=== PATIENT | female | born 1980 | race Caucasian/White ===

== ENCOUNTER 2022-08-14 08:21 | Inpatient (IN) | payer MEDICARE ==
[~2022-08-14] VITALS: Ht 175.3 cm; Wt 111.9 kg
--- OUTSIDE RECORDS SUMMARY | 2022-08-14 08:24 | XMS ---
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 Care Guidelines exist for the following facilities: [facility] ( 01/28/2020 ) [place] VISIT COUNT (12 MO.) 1 [facility] (formerly [facility]3][place] [facility] TOTAL 1 NOTE: Visits indicate total known visits. ED/UCC VISIT TRACKING (12 MO.) 08/14/2022 08:22 [facility] [place] TYPE: Emergency COMPLAINT: - HEADACHE INPATIENT VISIT TRACKING (12 MO.) No inpatient visits to display in this time frame [email or web address]
[2022-08-14] MEDS ORDERED: DEXTROAMPHETAMI10 M1 PO (09:08)
[2022-08-14] MEDS ORDERED: SULFAMETHOXAZO1 EAC1 PO (09:08)
[2022-08-14] MEDS ORDERED: BUPROPION XL300 MG PO (09:08)
[2022-08-14] MEDS ORDERED: AMPHETAMINE SAL15 MG PO (09:08)
[2022-08-14] MEDS ORDERED: LAMOTRIGINE150 MG PO (09:09)
[2022-08-14] MEDS ORDERED: VITAMIN D21250 MCG PO (09:09)
[2022-08-14] MEDS ORDERED: ARIPIPRAZOLE30 MG PO (09:09)
[2022-08-14] MEDS ORDERED: ESCITALOPRAM OX10 MG PO (09:11)
--- NOTE | 2022-08-14 13:05 | NUR ---
REPORT RECEIVED FROM PILO JONES. AWAITING PTS ARRIVAL TO MED/SURG.
--- NOTE | 2022-08-14 14:01 | NUR ---
PT ARRIVED FROM ER. BHAVNA RN AT BEDSIDE CHECKING PT IN. PT RESTING IN BED. DIAPHORETIC. TEMPERATURE CONTINUES TO ELEVATE. DR. CARVER UPDATED AND STATES TO GIVE ADDITIONAL DOSE OF TYELNOL NOW, SEE MAR FOR MEDICATION GIVEN. PT REPORTS 7/10 HEADACHE THAT "SPIKES, IT FEELS LIKE LIGHTENING." PT ALERT AND OREINTED TO ALL. DENIES NUMBNESS AND TINGLING. PT REPORTS "MUSCLE CRAMPS" IN LEGS OFF AND ON. LUNG SOUND CLEAR. HEART TONES REGULAR, MILD TACHYCARDIA NOTED. GENERALIZED EDEMA NOTED TO RIGHT SIDE OF FACE. PT REPORTS SPKIES OF PAIN IN THIS AREA. BOWEL TONES ACTIVE, ABDOMEN SOFT AND NON TENDER. BILATERAL FLANK PAIN NOTED, WORSE WITH PALPATION. PT REPORTS OCCATIONAL PAIN WITH URINATION. ~10CM SCRATCH NOTED TO RIGHT HIP, MILD ERYTHEMA NOTED AROUND SCRATCH. PT REPORTS THIS SCRATCH WAS FROM HER CAT BUT OCCURED "AFTER I GOT SICK." PT REQEUSTS LUNCH TO EAT. ORDER PLACED AND FOOD DELIVERED. NO ADDITIONAL REQUESTS OR COMPLAINTS AT THIS TIME. PT DEMONSRATES USE OF CALL LIGHT. CALL LIGHT WITHIN REACH. BED RAILS UP.
--- NOTE | 2022-08-14 15:18 | NUR ---
THIS RN TO ROOM TO CHECK ON PT AND REASSESS TEMPERATURE. TEMPERATURE NOW 102.4, DR CARVER UPDATED. STATES TO PROVIDE ICE PACKS TO PT TO HELP HER COOL DOWN. 3 ICE PACKS PROVIDED, PLACED BEHIND PTS NECK. 1 UNDER ARM PIT ADN OEN BETWEEN LEGS. PT STATES ICE "FEELS GOOD." PT REPORTS 6/10 PAIN IN RIGHT FACE, SEE MAR FOR MEDICATION GIVEN. NO ADDITIONAL NEEDS AT THIS TIME. ICE WATER REFILLED. CALL LIGHT WITHIN REACH. BED RAILS UP.
[2022-08-14] MEDS ORDERED: LEVOTHYROXINE25 MCG PO (15:23)
[2022-08-14] MEDS ORDERED: VALACYCLOVIR1000 MG PO (15:23)
--- NOTE | 2022-08-14 16:20 | NUR ---
MEDICATION DUE. THIS RN TO ROOM. TEMPERATURE REASSESED, NOW 99.3. PT REPORTS PAIN HAS MUCH IMPROVED, NOW 2/10 IN RIGHT FACE/HEADACHE. VANCO RATE AND TIME TO INFUSE APPEARS UNUSUAL. PHARAMCY CALLED AND STATES RATE IS INCORRECT. NEW LABLE PRINTED. MEDICAITON STARTED (SEE MAR). PTS SIGNIFICANT OTHER ARRIVED TO BEDSIDE. UPDATED BY PT. NO ADDITIONAL REQESTS OR COMPLAINTS. CALL LIGHT WITHIN REACH. BED RAILS UP.
--- NOTE | 2022-08-14 17:49 | NUR ---
AFTERNOON ASSESSMENT DUE. THIS RN TO ROOM. PT EATING DINNER AND VISITING WITH FRIENDS. PT REPORTS PAIN IS "PRETTY MUCH GONE." RATING PAIN AT 1/10 IN RIGHT SIDE OF FACT. TEMPERATURE NOW 99.0. PT REPORTS ICE PACKS FEEL "REALLY GOOD." TACHYCARDIA NOW RESOLVED. BOWEL TONES ACTIVE. ABDOMEN SOFT AND NON TENDER. PT VOIDING QUANTITY SUFFICENT. SWELLING TO FACE UNCHANGED BUT PT STATES "IT FEELS BETTER." EXTENSIVE EDUCATION DONE WITH PT REGARDING MEDICATIONS AND PLAN OF CARE. ICE WATER REFILLED. ICE PACKS REFILLED. NO ADDITIONAL REQUESTS OR COMPLAINTS. CALL LIGHT WITHIN REACH. BED RAILS UP. FRIENDS AT BEDSIDE.
--- NOTE | 2022-08-14 18:14 | NUR ---
PT ADMITED THIS SHIFT FOR UTI AND SEPSIS. PT UP WITH STAND BY ASSISST IN ROOM. PT TOELRATING REGULAR DIET WITH GOOD APPITITE. PT FEBRIAL FOR MOST OF SHIFT, MULTIPLE MEDICATIONS GIVEN AND ICE PACKS APPLIED. FEVER BROKE THIS EVENING. IV ABX GIVEN. SWELLING TO RIGHT FACE NOTED WITH 6-7/10 PAIN, PAIN MEDICATIONS GIVEN WITH GOOD RESULTS. FRIENDS AT BEDSIDE. PT VOIDING QUANTITY SUFFICIENT. PT USES CALL LIGHT AND MAKES NEEDS KNOWN.
--- NOTE | 2022-08-14 18:36 | NUR ---
THIS RN TO ROOM TO CHECK ON PT FINISHED WITH DINNER ATE ~10% OF DINNER BUT PREVIOSULY ATE 100% OF SNACK (WILLIAM AND ANNALISA). PT REPORTS PAIN IN RIGHT FACE REMAINS AT /10, PT DENIES NEED FOR ADDITIONAL PAIN MEDICATION. PT REMAINS AFBRIAL AT THIS TIME. PT DENIES ADDITIONAL REQUESTS OR COMPLAINTS. ORAL CARE PERFOREMED PER PT. CALL LIGHT WITHIN REACH. FRIENDS AT BEDSIDE.
--- NOTE | 2022-08-14 20:01 | NUR ---
IN TO PROVIDE PT A WARM BLANKET, EMPTIED URINE HAT
--- NOTE | 2022-08-14 21:09 | NUR ---
PATIENT VERBALIZED CONCERN THAT SHE WAS NOT TAKING HER VALTREX THAT SHE NORMALLY TAKES AT NIGHT. TELEPHONE ORDER DR. CARVER. NEW ORDER FOR VALTREX PO 1000 MG AT HS. UPDATED PATIENT ON POC.
--- NOTE | 2022-08-15 02:10 | NUR ---
PATIENT CALLED, INTO ROOM PATIENT APPEARS SHORT BREATH. PATIENT STATES " I FELL LIKE I CAN'T TAKE A DEEP BREATH" RESPIRATIONS APPEARS SHALLOW RR 28. PATIENT UP TO BSC. VSS COLLECTED. OXYGEN SATURATION 96% RA. LUNG SOUND CLEAR IN UPPER BASES BILATERALLY, WET CRACKLES IN THE BASES. NOTIFIED , WHO VERBALIZED TO TURN OFF FLUIDS AND RECHECK VITAL SIGNS IN AN HOUR. UPDATED PATIENT ON POC.
--- NOTE | 2022-08-15 04:27 | NUR ---
PATIENT UP THROUGHOUT NIGHT WITH COMPLAINTS OF PAIN TO FACE, ADMINISTERED PAIN MEDICATION WHEN AVAILABLE, PLUS AND ONE ADDITIONAL DOSE OF FENTANYL IV AND DOSE OF PO MOTRIN. PATIENT BECAME SOB AT 0200, LUNG SOUND AUSULTATED WET CRACKLES IN LOWER BASES. NEW ORDERS TO TURN OFF VITAL SIGNS. CRACKLES TO LOWER BASES DID NOT APPEAR TO WORSEN UPON REASSESMENT AND OXYGEN SATURATION HAS MAINTAINED 96% ON ROOM AIR. PATIENT APPEARS TO BE TAKING SHALLOW BREATHS.
--- NOTE | 2022-08-15 06:55 | NUR ---
PATIENT RESTING ON SIDE, APPEARS TO BE RESTING EYES. APPEARS TO BE NO NEEDS AT THIS TIME.
--- NOTE | 2022-08-15 07:21 | NUR ---
REPORT RECEIVED FROM PILO JONES. PT RESTING ON LEFT SIDE WITH EYES CLOSED, RESPIRATIONS EVEN AND UNLABORED. BED RAILS UP. CALL LIGHT WITHIN REACH. PT ALLOWED TO REST.
--- NOTE | 2022-08-15 08:55 | NUR ---
medications reconciled using pharmacy records and patient interview
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
--- NOTE | 2022-08-15 09:49 | NUR ---
PT IS LAYING IN BED AFTER BREAKFAST, VITALS AN D I/O HAVE BEEN DOCUMENTEED. PROVIDED FRESH ICE WATER TO PT. PT HAS NO FIRTHER NEEDS AT THIS TIME. CALL LIGHT IS WITHIN REACH.
--- NOTE | 2022-08-15 09:50 | NUR ---
THIS RN TO ROOM TO CHECK ON PT. PT REPORTS PAIN IS NOW 3/10 AND DENIES NEED FOR ADDITIONAL PAIN MEDICATION. RIGHT FORARM IV SITE INFUSION COMPLETE, IV FLUSHED AND SALINE LOCKED. DR CARVER TO BEDSIDE TO ROUND WITH PT. THIS RN LEAVES ROOM TO ALLOW PT TO HAVE CONVERSATION ABOUT CONCERNS WITH MD. PT DENIES ADDITONAL NEEDS AT THIS TIME. CALL LIGHT WITHIN REACH. BED RAILS UP.
--- NOTE | 2022-08-15 10:39 | NUR ---
THIS RN TO ROOM TO CHECK ON PT. PT UPDATED ON PLAN OF CARE AND LAB SAMPLES. PT VERBALIZES UNDERSTANDING. DIRTY CATCH URINE COLLECTED ANS SENT TO LAB, PER MD ORDER. PT REPORTS 5/10 PAIN IN RIGHT FACE. SEE MAR FOR PAIN MEDICATION GIVEN. AWAITING SWAB TO ARRIVE FROM LAB TO COLLECT ORAL SAMPLE. PT VERBALIZES UNDERSTANDING OF PLAN OF CARE AND STATES HER QEUSTIONS HAVE BEEN ANSWERED. PT REPORTS OCCATIONAL DIFFICULTY SWALLOWING STATING "ITS LIKE MY THROAT IS DRY." PT DENIES ADDITIONAL REQUESTS OR COMPLAINTS. PT BACK TO BED. CALL LIGHT WITHIN REACH. BED RAILS UP.
--- NOTE | 2022-08-15 11:39 | NUR ---
THIS RN TO ROOM TO CHECK ON PT. PT VISITING WITH SIGNIFICANT OTHER. PT REPORTS PAIN HAS IMPROVED, NOW AT 3/10. IV PUMP ALARMING, INFUSION AND FLUSH COMPLETE. LEFT FOR ARM IV SITE FLUSHED AND SALINE LOCKED, ALCOHOL CAP APPLIED. PT CONTINUES VISITING WITH HER FRIENDS. NO ADIDITONAL REQUESTS OR COMPLAINTS. CALL LIGHT WITHIN REACH. BED RAILS UP.
--- NOTE | 2022-08-15 12:22 | NUR ---
THIS RN TO ROOM TO CHECK ON PT. PT DECLINES LUNCH STATING HER FRIENDS ARE BRINGING HER FOOD. PT REPORTS PAIN IS WELL CONTROLLED AND DENIES ADDITIONAL REQUESTS OR COMPLAINTS. CALL LIGHT WITHIN REACH. BED RAILS UP.
--- NOTE | 2022-08-15 12:43 | NUR ---
PT TO AND FROM CT SCAN. PT REPORTS SCAN WENT WELL WITH NO ISSUES. THIS RN TO ROOM WITH DR TIWARI. EXAM PERFORMED AND ORAL AND VAGINAL SWAB COLLECTED BY DR. TIWARI. PT REPORTS TO DR. TIWARI THAT SHE HAS HAD SOME SPOTTING. PT TOLERATED EXAM WELL. PT UPDATED ON PLAN OF CARE AND STATES HER QUESTIONS HAVE BEEN ASNWERED. PT DENIES ADDITIONAL REQUESTS OR COMPLAINTS. CALL LIGHT WITHIN REACH.
--- NOTE | 2022-08-15 13:09 | NUR ---
PT CALL LIGHT ON. PT REQUESTS PAIN MEDICATION FOR 6/10 PAIN IN RIGHT CHEEK/HEAD. PTS FRIEND ARRIVED TO BEDSIDE WITH FOOD FOR PT. PT EATING AND VISITING WITH FRIEND.NO ADDITIONAL NEEDS AT THIS TIME. CALL LIGHT WITHIN REACH. BED RAILS UP.
--- NOTE | 2022-08-15 13:24 | NUR ---
MESSAGE SENT TO REGARDING POSSIBLE PROBIOTIC RELATED TO MULTIPLE ABX.
--- NOTE | 2022-08-15 13:47 | NUR ---
ABX DUE. PT CONTINUES TO REPORT 6/10 PAIN IN RIGHT FACE AND JAW. ICE PACK PROVIDED. ABX GIVEN. PT REPORTS OCCATIONAL FEELINGS OF SHORTNESS OF BREATH THAT "MIGHT BE ANXIETY." LUNG SOUNDS REMAIN CLEAR. PT FINISHED WITH LUNCH THAT WAS DELIVERED BY FRIENDS. PT DEMONSRATES USE OF I.S. REACHIGN 2000ML X5. OXYGEN SATURATIONS REMAIN 98-100% ON ROOM AIR. NO ADDITIONAL NEEDS AT THIS TIME. CALL LIGHT WIHTIN REACH. BED RAILS UP.
--- NOTE | 2022-08-15 14:14 | NUR ---
PT IS LAYING IN BED. VITALS AND I/O HAVE BEEN DOCUMENTED. FRESH ICE WATER WAS PROVIDED. PT HAS NO OTHER NEEDS AT THIS TIME, CALL LIGHT IS WITHIN REACH.
--- NOTE | 2022-08-15 14:40 | NUR ---
AFTERNOON ASSESSMENT DUE. IV PUMP ALARMING, INFUSTION AND FLUSH COMPLETE. IV SITE APEPARS MILDLY SWOLLEN, PAINFUL WITH FLUSH. IV TO LEFT FORARM DC'D PER PROTOCOL. GAUZE AND COBAN APPLIED. PT UP TO RESTROOM INDEPENDANTLY. PT REPORTS ONGOING 6/10 PAIN IN RIGHT FACE/HEAD THAT SPKIES UP TO 8/10 AND SHAKING CHILLS. PT SEEN TO HAVE UNCONTROLLABLE CHILLS. TEMPERATURE 99.6 AND RISING. TYELNOL GIVEN (SEE MAR). PT REMAINS ALERT AND OREINTED ALTHOUGH FATIGUED. LUNG SOUNDS REMAIN CLEAR. I.S. USE DEMONSTRATED WITH PT REACHING 2000ML X5. HEART TONES REGULAR WITH MILD TACHYCARDIA NOTED, HR 90'S. PT DENIES ANY ADDITIONAL MUSCLE CRAMPS, REMAINS STEADY ON FEET. BILATERAL FLANK PAIN AND PELVIC PAIN CONTINUE. ABDOMEN SOFT AND NON TENDER. BOWEL TONES ACTIVE. PT REQUESTS TO REST, NO ADDITIONAL REQEUSTS OR COMPLAINTS. CALL LIGHT WITHIN REACH. BED RAILSUP.
--- NOTE | 2022-08-15 15:44 | NUR ---
THIS RN TO ROOM TO CHECK ON PT. PT RESTING IN BED, REPORTS SHE IS FEELING "A LITTLE BETTER." PT REPORTS FACIAL PAIN IS IMPROVING NOW AT 4/10 AND SHE IS NO LONGER HAVING SHAKING CHILLS. TEMPERATURE NOW 100.4 (ORALLY). FRIEND AT BEDSIDE VISITING WITH PT. PT DENIES ADDITIONAL REQUESTS OR COMPLAINTS. ICE WATER REFILLED. CALL LIGHT WITHIN REACH. BED RAILS UP.
--- NOTE | 2022-08-15 15:58 | NUR ---
PT HERE FOR UTI WITH POSSIBLE SEPSIS. PT UP WITH STAND BY ASSIST IN ROOM AND TO RESTROOM THIS SHIFT, PT STEADY ON FEET. PT HAS MODERATE APPITITE FOR REGULAR DIET THIS SHIFT, FOOD BROUGHT FROM HOME. PT REPORTS 3-6/10 PAIN TO RIGHT FACE THIS SHIFT, PRN PAIN MEDICATIONS GIVEN. PT FEBRIAL AGAIN THIS AFTERNOON, TYLENOL GIVEN. VAGINAL, ORAL SWABS COLLECTED THIS SHIFT TO [facility] FOR STIS. DIRTY CATCH URINE ALSO SENT. PELVIC EXAM BY DR. TIWARI (CONSULT IN PLACE). NEW ABX ADDED. MONITORING KIDNEY LABS, PT VOIDING QUANTITY SUFFICIENT. HEART TONES REGULAR AND LUNG SOUNDS CLEAR THIS SHIFT. PT USING I.S. PT USES CALL LIGHT AND MAKES NEEDS KNOWN.
--- NOTE | 2022-08-15 16:35 | NUR ---
THIS RN TO ROOM TO CHECK ON PT. NEW ORDERS PLACED. PROBIOTIC GIVEN. PT REPORTS 4/10 LEFT SIDED FACIAL PAIN AND REQUESTS PAIN MEDICATIONS. NEW MEDICATION GIVEN (SEE MAR). TEMPEARTURE RESSESSED, NOW 98.6. PT NO LONGER HAS SHAKING CHILLS. NO ADDITIONAL REQUESTS OR COMPLAINTS. CALL LIGHT WITHIN REACH. BED RAILS UP.
--- NOTE | 2022-08-15 17:38 | NUR ---
THIS RN TO ROOM TO CHECK ON PT. PT RESTING IN BED. PT REPORTS FACIAL PAIN HAS IMPROVED NOW 11/26. PT DENIES [place]A. PT TELLING STORIES ABOUT TRAVEL AND SEEMS MORE CHEERFUL AND ENTERGETIC A THIS TIME. 7-UP PROVIDED TO PT. PT DENIES ADDITIONAL REQUESTS OR COMPLAINTS. PT TALKING WITH FAMILY ON THE PHONE. CALL LIGHT WITHIN REACH. BED RAILS UP.
--- NOTE | 2022-08-15 18:18 | NUR ---
PT CALL LIGHT ON. PT HAS HER STEP MOTHER, ERICA, ON THE PHONE AND REQUESTS THAT THIS RN UPDATE ERICA. ERICA UPDATED ON PT STATUS, PLAN OF CARE AND PENDING LABS PER PTS REQUEST. ERICA VERBALIZES UNDERSTANDING AND STATES HER QUESTIONS HAVE BEEN ANSWERED. PT CONTINUES TO REPORT 2/10 PAIN IN RIGHT FACE. TEMPEATURE SLIGHTLY ELEVATED, WILL MONITOR. NO ADDITIONAL NEEDS AT THIS TIME. CALL LIGHT WITHIN REACH. BED RAILS UP.
--- NOTE | 2022-08-15 18:20 | CONS ---
[facility] [address], [place] [address] Signed DATE OF CONSULTATION: 08/15/2022 REQUESTING PHYSICIAN: Mary Nolasco M.D. HISTORY OF PRESENT ILLNESS: The patient is a 42-year-old female, 0, using a Mirena for control, who was admitted by the hospitalist service for fever of uncertain etiology. She recently had oral and vaginal intercourse with a new partner who she met online on approximately 08/01. Approximately 2-3 days later, she had UTI type symptoms which improved after pushing fluids and using cranberry juice. She no longer had any symptoms of the UTI; however, this past on August 12, she had low back pain and went to Urgent Care for evaluation. She was diagnosed with a UTI and was started on Bactrim However, her symptoms continued to worsen and she presented to the emergency room because of ongoing low back pain associated with fever and chills. She also developed right-sided facial pain, which radiated from the angle of her jaw behind and in front of her right ear. This pain is intermittent and shooting. She also feels the right side of her face is a slightly swollen. The evaluation in the ED was negative for head and neck issues by CT but she was admitted for the evaluation of ongoing fever of uncertain cause. She has continued to have intermittent fever since admit. She was initially begun on ceftriaxone, but vancomycin added today because of the continued fever. Today, she continues to have low back pain with intermittent right facial pain. REVIEW OF SYSTEMS: Positive for dysphagia. Negative for nausea, vomiting, or change in bowel movements. Positive for some spotting with her Mirena. PAST MEDICAL HISTORY: SURGERIES: LASIK, revise thumb tendon. ILLNESSES: Positive for bipolar disease. 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 Positive for Mirena use. Positive for chronic herpes, both oral and vulvovaginitis. Positive for hypothyroidism. Positive for sleep apnea. Positive for sleep apnea. Positive for chronic kidney disease St [address]. ALLERGIES: To penicillin as well as Latuda with nausea and erythromycin with shortness of breath. MEDICATIONS: 1. Lexapro 10 mg daily. 2. Bupropion XL 300 mg daily. 3. Adderall 15 mg daily. 4. Levothyroxine 25 mcg daily. 5. Lamictal 150 mg two tablets once a day. Electronically Signed By: GENNY TIWARI MD 08/15/221819 PATIENT NAME: ARELY YEE CONSULTATION DATE OF : 80 REPORT #: [id number] PHYSICIAN: GENNY TIWARI MD PCP: JOSE ENRIQUE ROACH MD REPORT IS CONFIDENTIAL AND NOT TO BE RELEASED WITHOUT AUTHORIZATION [facility] [address] [place] [id number] Signed 6. Abilify 30 mg one tablet daily. 7. Mirena. 8. Valtrex 1 g p.o. daily. FAMILY HISTORY: Noncontributory. HABITS: Negative for tobacco. Positive for occasional alcohol use. Denies any other drug use. PHYSICAL EXAMINATION: VITAL SIGNS: Blood pressure is 126/72, temp 97.3, pulse 83, O2 saturation 98% on room air. Highest temp was 103 at 1430 yesterday, at 0300 this morning it was 100.7. GENERAL: She is a well-developed, well-nourished female, in no acute distress. There was no obvious facial asymmetry or obvious facial swelling on the right. She is nontender to palpation on the right side of her face. Oral cavity has no evidence of any ulcers or lesions. LUNGS: Clear. HEART: Regular rate and rhythm, without murmur. ABDOMEN: Soft. She has active bowel sounds. She is tender in the left lower quadrant as well as the suprapubic area and right lower quadrant as well as slightly above the pelvic brim on the right. : On pelvic exam, external genitalia are normal. Vagina is clear of lesions. Her cervix is slightly tender with motion. Uterus was normal size, firm, moderately tender. Adnexa, she is slightly tender on the left and the right, but no palpable masses are noted. RECTAL: Deferred. LABORATORY DATA: Lab evaluation is otherwise normal other than her UA, which is consistent with a probable UTI. White count is normal. CMP remarkable for decreased renal function with a GFR of 36. IMPRESSION: A 42-year-old female, who probably has PID given her pelvic tenderness in her recent sexual contact with a new partner. She also likely has a UTI though she does not have any CVA tenderness consistent with pyelonephritis. There is no obvious source for her right sided facial pain. PLAN: Oral and vaginal swabs for GC and Chlamydia done Add oral doxycycline and IV Flagyl to her current ceftriaxone and vancomycin Attempt to locate urine culture done in Urgent Care Electronically Signed By: GENNY TIWARI MD 08/15/22 1820 PATIENT NAME: ARELY YEE CONSULTATION DATE OF : 80 REPORT #: [id number] PHYSICIAN: GENNY TIWARI MD PCP: JOSE ENRIQUE ROACH MD REPORT IS CONFIDENTIAL AND NOT TO BE RELEASED WITHOUT AUTHORIZATION [facility] [address] [place], [place] [address] Signed MD PALMIRA Delarosa/MODL /[id number] Copies: ~ Electronically Signed By: GENNY TIWARI MD 08/15/22 182 PATIENT NAME: ARELY YEE CONSULTATION DATE OF : 80 REPORT #: [id number] PHYSICIAN: GENNY TIWARI MD PCP: JOSE ENRIQUE ROACH MD REPORT IS CONFIDENTIAL AND NOT TO BE RELEASED WITHOUT AUTHORIZATION
--- NOTE | 2022-08-15 19:23 | NUR ---
REPORT RECEIVED FROM PILO VANESSA. pt RESTING IN BED EATING DINNER. RATES PAIN 2/10 IN RIGHT SIDE OF FACE, STATES "ITS OKAY NOW". IV SL. CALL LIGHT IN REACH. NO REQUESTS AT THIS TIME.
--- NOTE | 2022-08-15 20:09 | NUR ---
CALL LIGHT ANSWERED. pt REQUESTING NIGHT MEDICATIONS. pt TEMPERATURE 100.2 ORALLY AFTER IS USE. pt WITH CHILLS, SHAKING VISIBLE. COOL CLOTH PROVIDED FOR HEAD. ASSESSMENT COMPLETE. IV SL WNL. PO MEDICATIONS ADMINISTERED. PO TYLENOL ADMINISTERED FOR FEVER, RATES PAIN 4/10 IN RIGHT SIDE OF FACE. CALL LIGHT IN REACH.
--- NOTE | 2022-08-15 21:26 | NUR ---
IN pt ROOM FOR ANTIBIOTIC ADMINISTRATION. pt RATES PAIN 5-6/10 IN RIGHT SIDE OF FACE. PRN PAIN MEDICATION ADMINISTERED REQUESTED. TEMPERATURE REASSESSED, 99.1 ORALLY. SBA TO RESTROOM FOR VOID AND BACK TO BED. IV ANTIBIOTIC INFUSING WNL. CALL LIGHT IN REACH.
--- NOTE | 2022-08-15 22:00 | NUR ---
CALL LIGHT ANSWERED. IV ANTIBIOTIC COMPLETE. IV SL WNL. CALL LIGHT IN REACH. LIGHTS OFF IN ROOM.
--- NOTE | 2022-08-16 00:30 | NUR ---
pt RESTING IN BED, LIGHTS OFF IN ROOM. NO DISTRESS NOTED.
--- NOTE | 2022-08-16 01:46 | NUR ---
CHECKED ON pt. RESTING IN BED ON SIDE. BREATHING UNLABORED. LIGHTS OFF IN ROOM.
--- NOTE | 2022-08-16 05:44 | NUR ---
CALL LIGHT ANSWERED. URINE EMPTIED. pt VOIDING QS. RESTING IN BED. AFEBRILE, VSS. ASSESSMENT COMPLETE. pt RATES PAIN 2-5/10 IN HEAD, FACE. PRN PAIN MEDICATION ADMINISTERED. RADAR TESTER IN ROOM. ICE WATER, APPLE JUICE PROVIDED. CALL LIGHT IN REACH.
--- NOTE | 2022-08-16 07:25 | NUR ---
bedside report from Isis reed, pt on left side sleeping with even resp rate, iv sl, call light in reach. call to kitchen for yogurt with meal for probios due to many abx and risk for vaginal yeast.
--- NOTE | 2022-08-16 08:46 | NUR ---
DR TIWARI IN WITH PT AND RN, PT TOLLERATED YOGURT AND EDUCATED ABOUT ABX AND ABD DISCOMFORT. ABX FUSING IN IV PUMP. PT REPORTS PAIN IMPROVED. ALERT AND ORIENTED - CALL LIGHT IN REACH. PT PLANS FOR SHOWER.
--- NOTE | 2022-08-16 11:17 | NUR ---
AFTER PATIENT WAS FINISHED WITH HER BREAKFAST. PATIENT GOT IN THE SHOWER. I WENT IN TO CHECK ON HER AND SHE SAID SHE NEEDED HELP ON WASHING HER BACK. AND SHE NEEDED A RAZOR TO SHAVE HER ARM PITS.
--- NOTE | 2022-08-16 12:17 | NUR ---
PT UP IN , DENIES NEEDS - FEELS BETTER AFTER SHOWER PER HER REPORT. STAFF HELPED HER GET HER MEAL FROM HOME TO EAT.
--- NOTE | 2022-08-16 13:00 | NUR ---
Spoke with Yessica, she lives with a roommate in a house with "lots of steps". She denies issues getting in and out of her home, but does states it might be different since she has been sick. She has a new male roommate and states she does not feel comfortable asking them to assist her with cooking or getting in and out of the home. She states she has multiple friends and they can assist her. I then showed her [employer] on line to order and have groceries delivered and gave her the phone number for [employer] in [facility]. Pt feels this will fit her needs. She denies further needs or concerns. Plans on dc to her home when she is cleared medically.
--- NOTE | 2022-08-16 13:35 | NUR ---
CHECKED ON PT WATER - DOING WELL, HAD SODA FROM HOME. ON PHONE DECLINES NEEDS.
--- NOTE | 2022-08-16 14:45 | NUR ---
rounded on pt, in bed with call light in reach - resp rate reg. appears sleeping. did not disturb.
--- NOTE | 2022-08-16 15:15 | NUR ---
REPORT RECIEVED. UPON ROUNDING ON PATIENT, SHE HAS A VISITOR IN ROOM. STATES THE PAIN IN HER BACK IS LESS. HAS MILD RIGHT SIDE FACE JAW PAIN.
--- NOTE | 2022-08-16 16:14 | NUR ---
STANDING UP IN ROOM. STATES SHE IS STRETCHING HER LEGS. STABLE ON FEET DENIES NEED FOR PAIN MEDICATION.
--- NOTE | 2022-08-16 19:40 | NUR ---
REPORT RECEIVED FROM PILO DOMÍNGUEZ. pt RESTING IN BED, TALKING ON PHONE. DENIES PAIN AT THIS TIME. ICE WATER REFILLED. CALL LIGHT IN REACH.
--- NOTE | 2022-08-16 21:39 | NUR ---
pt AWAKE RESTING IN BED. DENIES PAIN, STATES "SOME DISCOMFORT IN THE RIGHT SIDE OF MY FACE, BUT MUCH BETTER". SCHEDULED MEDICATIONS ADMINISTERED. ASSESSMENT COMPLETE. pt COMPLAINS OF NEED TO HAVE BM, NIO MEDICATION INITIATED. CALL LIGHT IN REACH. ICE WATER PROVIDED.
--- NOTE | 2022-08-16 22:21 | NUR ---
CALL LIGHT ANSWERED. pt REQUESTING PAIN MEDICATION. RATES PAIN 2/10 AT REST AND 5/10 "WHEN THE TWINGES COME". PRN PAIN MEDICATION ADMINISTERED. CALL LIGHT IN REACH. IV SL. NO ADDITIONAL REQUESTS.
--- NOTE | 2022-08-17 01:00 | NUR ---
CHECKED ON pt. RESTING IN BED WITH EYES CLOSED. LIGHTS OFF IN ROOM. NO DISTRESS NOTED.
--- NOTE | 2022-08-17 04:00 | NUR ---
pt RESTING IN BED. LIGHTS OFF IN ROOM. NO DISTRESS NOTED.
--- NOTE | 2022-08-17 06:19 | NUR ---
pt AWAKENS TO VOICE FOR VS. VSS. pt RATES PAIN 2/10 IN FACE, "JUST SORE". DENIES NEED FOR PRN PAIN MEDICATION. ASSESSMENT COMPLETE. BSC EMPTIED, 3000 MLS YELLOW URINE. ICE WATER PROVIDED. CALL LIGHT IN REACH.
--- NOTE | 2022-08-17 07:07 | NUR ---
REPORT RECEIVED FROM PILO MEDINA. PT RESTING ON LEFT SIDE WITH EYES CLOSED. RESPIRATIONS EVEN AND UNLABORED. BED RAILS UP. CALL LIGHT WITHIN REACH. PT ALLOWED TO REST.
--- NOTE | 2022-08-17 08:19 | NUR ---
MORNING ASSESSMENT AND MEDICATION DUE. THIS RN TO ROOM. PT UP TO CHAIR EATING BREAKFAST. DR. TIWARI TO BEDSIDE TO REVIEW PLAN OF CARE WITH PT. PT ASKS MEANINGFUL QUESITONS AND VERBALIZES UNDERSTANDING OF PLAN OF CARE AND STATES HER QUESTIONS HAVE BEEN ANSWERED. PT REPORTS 4/10 RIGHT SIDED FACIAL PAIN, A PALPABLE FIRM BUMP CAN BE FELT IN RIGHT SIDE OF FACE. PT REPORTS 4/10 FLANK PAIN THAT GOES UP TO 6/10 WITH PALPATION AND 3/10 PELVIC PAIN ONLY WITH PALPATION. PT REQUESTS TYLENOL. SEE MAR FOR MEDICATION GIVEN. PT ALERT AND OREINTED TO ALL. LUNG SOUNDS CLEAR. HEART TONES REGULAR, NO TACHYCARDIA NOTED. ABDOMEN SOFT AND NON TENDER BUT FOR PELVIC AREA. PT REPORTS BOWEL MOVEMENT LAST NIGHT AND DECLINES SENNA. PROBIOTIC GIVEN. PT DENIES BURNING WITH URINATION. PT REQUESTS A SMOOTHY IN ADDITIONAL TO BREAKFAST, ORDER PLACED. NO ADDITIONAL REQUESTS OR COMPLAINTS. CALL LIGHT WIHTIN REACH.
[2022-08-17] MEDS ORDERED: DOXYCYCLINE HY100 MG PO (08:48)
[2022-08-17] MEDS ORDERED: METRONIDAZOLE500 MG PO (08:51)
--- NOTE | 2022-08-17 09:13 | NUR ---
PT CALL LIGHT ON. PUMP ALARMING, INFUSIONS AND FLUSHES COMPLETE. IV ASSESSED, WNL. IV FLUSHED AND SALINE LOCKED. HEAT PACK PROVIDED FOR FLANK PAIN. PT REPORTS PAIN IS IMPROVING, NOW 3/10 IN RIGHT FACE, 3/10 IN FLANK AREA AND 0/10 IN PELVIC AREAS. NO ADDITIONAL REQUESTS OR COMPLAINTS. CALL LIGHT WITHIN REACH.
--- NOTE | 2022-08-17 10:14 | NUR ---
HOURLY ROUNDING: PT RESTING IN BED, REPORTS SHE WOULD LIKE TO TAKE A NAP. PT REPORTS PAIN HAS IMPROVED NOW 1/10 IN RIGHT FACE, 3/10 IN BILATEAL FLANKS (HEAT PACK IN PLACE WHICH IS "HELPING."), AND 0/10 IN ABDOMEN. ICE WATER REFILLED. 700ML YELLOW URINE EMPTIED FROM HAT. PT DENIES ADDITIONAL REQUESTS OR COMPLAINTS. CALL LIGHT WITHIN REACH.
--- NOTE | 2022-08-17 11:29 | NUR ---
THIS RN TO ROOM TO CHECK ON PT. PT RESTING IN BED ON LEFT SIDE WITH EYES CLOSED, RESPIRATIONS EVEN AND UNLABORED. CALL LIGHT WITHIN REACH. BED RAILS UP. PT ALLOWED TO REST.
--- NOTE | 2022-08-17 11:34 | NUR ---
THIS RN TO ROOM WITH DR HUBER FOR ROUNDS. PT AWAKENS TO KNOCK ON THE DOOR. PT UPDATED ON PLAN FOR DISCHARGE BY DR. HUBER. PT ASKS INCITEFUL QUESTIONS AND VERBALIZES UNDERSTANDING OF PLAN OF CARE. IV DC'D PER PROTOCOL, FAHADE AND CHRISS APPLIED. PT UP TO DRESS SELF, PT STEADY ON FEET, NO ASSISTANCE NEEDED. NO ADDITIONAL NEEDS AT THIS TIME. PT CALLING FRIENDS FOR A RIDE HOME. CALL LIGHT WITHIN REACH.
[2022-08-17] MEDS ORDERED: CULTURELLE1 EAC1 PO (11:54)
[2022-08-17] MEDS ORDERED: CEPHALEXIN500 MG PO (11:55)
--- NOTE | 2022-08-17 12:16 | NUR ---
PT READY FOR DISCHARGE. DISCHARGE INSTRUCTIONS REVEIWED WITH PT. PT VERBALIZES UNDERSTANDING OF INSTRUCTIONS, MEDICATION, AND FOLLOW UP. PHARMACIST TO BEDSIDE TO FURTHER DISCUSS MEDICATIONS. PT STATES HER QUESTIONS HAVE BEEN ANSWERED. VITAL SIGNS STABLE. PT DENIES ADDITIONAL NEEDS AT THIS TIME. AWAITING HER RIDE AND WILL CALL WHEN THEY ARRIVE. CALL LIGHT WITHIN REACH.
--- NOTE | 2022-08-17 13:22 | NUR ---
PT CALL LIGHT ON. PTS RIDE ARRIVED. PT WHEELED FROM MED/SURG BY FITO SINHA. BELONGINGS RETRIEVED FROM [facility] ON THE WAY OUT. NO ADDITIONAL REQUESTS OR COMPLAINTS.
--- NOTE | 2022-08-20 12:14 | NUR ---
SPOKE WITH PATIENT BY PHONE FOR POST DISCHARGE CALL. PATIENT FEELING BETTER. WAS ABLE TO DISCUSS SIDE EFFECTS OF MEDS. IS HAVING DIARRHEA. STARTED TWO DAYS AGO. DISCUSSED INCREASING FLUIDS, AND WHEN TO CALL DR OR BE SEEN. SHE STATES SHE FEELS SHE IS STAYING HYDRATED AND HAS CALLED DR OFFICE. SHE HAS F/U APPT WITH PCP NEXT TUESDAY. SHE HAS TRANSPORTATION. HER ONLY QUESTION SHE THINKS OF IS WHY THE INSTRUCTIONS SAY TO AVOID CARBONATED BEVERAGES. DISCUSSED CAN IRRITATE BLADDER AND TO ASK DR CONNELL FOR HOW LONG AT HER APPT THE . GAVE HER CASE MANAGEMENT CONTACT NUMBER IF SHE HAS OTHER QUESTIONS OR CONCERNS. HER ONLY CONCERN WHILE HERE WAS THE FOOD. SHE STATES SHE USED TO EAT IN THE [place] IT WAS AFFORDABLE AND GOOD. SHE STATES "FOOD WAS REALLY HORRIBLE" SO DIDN'T EAT MUCH.
== END 2022-08-17 13:20 | disposition home or self-care (01) | DRG 690 ==
LOC: ED 08:21 → MS 08:23
PROVIDERS: ADMIT Internal Medicine; ATTEND Internal Medicine
DX: N10 Acute pyelonephritis (principal); N73.9 Female pelvic inflammatory disease, unspecified; E86.0 Dehydration; N17.9 Acute kidney failure, unspecified; N18.30 Chronic kidney disease, stage 3 unspecified; K11.20 Sialoadenitis, unspecified; F31.9 Bipolar disorder, unspecified; Z79.899 Other long term (current) drug therapy; B96.20 Unspecified Escherichia coli [E. coli] as the cause of diseases classified elsewhere; Z20.822 Contact with and (suspected) exposure to COVID-19
CPT/HCPCS: 36415; 70450; 70487; 71045; 74176; 80048; 80053; 81001; 83605; 84703; 85025; 86140; 86704; 86780; 86803; 87040; 87088; 87340; 87491; 87502; 96366; 96375; 99285-25; A9270; C9803; J0696; J2270; J2405; J3010; J3370; J7030; J7060; Q9967; U0003